=== PATIENT | female | born 1995 | race American Indian/Alaskan Native ===

== ENCOUNTER 2017-10-03 19:59 | Emergency (ER) | payer SELFPAY ==
[2017-10-03] MEDS ORDERED: TYLENOL PO ONE (23:38)
[2017-10-03] MEDS ORDERED: TYLENOL ONE (23:38)
[2017-10-04] MEDS ORDERED: THERMAZENE 50 GRAM TP ONE ×3 (03:50→03:59)
[2017-10-04] MEDS ORDERED: TYLENOL #3 PO ONE (03:57)
[2017-10-04] MEDS ORDERED: TYLENOL #3 ONE (03:57)
[2017-10-04] MEDS ORDERED: BOOSTRIX IM ONE (04:03)
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
[2017-10-04 05:07] VITALS: BP 127/81
== END 2017-10-04 05:08 | disposition home or self-care (01) ==
LOC: ED 19:59
DX: T23.252A Burn of second degree of left palm, initial encounter (principal); X17.XXXA Contact with hot engines, machinery and tools, initial encounter; Y93.G3 Activity, cooking and baking; Y92.89 Other specified places as the place of occurrence of the external cause; Y99.8 Other external cause status
CPT/HCPCS: 90471; 90715; 99282